=== PATIENT | female | born 1950 | race Caucasian/White ===

== ENCOUNTER 2018-10-22 08:17 | Day surgery (SDC) | payer MEDICARE ==
[~2018-10-22] VITALS: Ht 167.6 cm; Wt 65.9 kg
[2018-10-22 08:42] LABS: HEMATOCRIT 42.1 % (36.0-48.0); HEMOGLOBIN 14.8 g/dL (12-16); MCH 33.9 pg (26.0-34.0); MCHC 35.2 g/dL (31.0-37.0); MCV 96.6 fL (80.0-100.0); MEAN PLATELET VOLUME 8.7 fL (7.4-10.4); RBC 4.36 10x6/uL (4.00-5.40); RDW 13.9 % (11.5-14.5); WBC 9.6 10x3/uL (4.8-10.8)
[2018-10-22] MEDS ORDERED: ALBUTEROL SULF8.5 GM INH (09:08)
[2018-10-22] MEDS ORDERED: DILT PO (09:09)
[2018-10-22] MEDS ORDERED: CELEXA40 MG PO (09:10)
[2018-10-22] MEDS ORDERED: ATIVAN1 MG PO (09:10)
[2018-10-22] MEDS ORDERED: ULTRAM50 MG PO (09:11)
[2018-10-22] MEDS ORDERED: ANORO ELLIPTA1 EACH INH (09:11)
[2018-10-22] MEDS ORDERED: KLONOPIN1 MG PO (09:11)
[2018-10-22] MEDS ORDERED: BENTYL 20 MG TA20 MG PO (09:12)
[2018-10-22] MEDS ORDERED: OMEPRAZOLE DR 20 MG PO (09:13)
[2018-10-22] MEDS ORDERED: PEPCID AC20 MG PO (09:14)
[2018-10-22 09:23] VITALS: BP 142/80; Ht 167.6 cm; Wt 65.9 kg
--- NOTE | 2018-10-22 15:38 | NUR ---
1525 DR. BOB FISHER
--- NOTE | 2018-10-22 16:02 | NUR ---
1600 IV DC'D WITH CATH INTACT STATES READY TO GO HOME DC INSTS GIVEN VOICED UNDERSTANDING GETTING DRESSED
--- NOTE | 2018-10-22 16:18 | NUR ---
1610 DC INSTS GIVEN VOICED UNDERSTANDING RELEASED IN WC WITH ESCORT.
--- NOTE | 2018-10-27 14:09 | OP ---
PATIENT NAME: PO WARD MEDICAL RECORD: [id number] :54 LOCATION:D.OPS ADMISSION DATE: SURGEON: PATRICIA ROJAS MD DATE OF OPERATION: 10/22/2018 PREOPERATIVE DIAGNOSIS: Sigmoid colon polyp, large. POSTOPERATIVE DIAGNOSES: Sigmoid colon polyp, large with cecal scar as well as 2 other sessile polyps that ranged in size from 1.0 cm in greatest dimension to 1.3 cm. PROCEDURES: 1. Total colonoscopy to the cecum. 2. Hot biopsy forceps polypectomies times 3. 3. Biopsy of the cecal scar. 4. Snare polypectomy of the sigmoid polyp and then treatment with the argon plasma instrument technician helper and placement of one endoscopic clip for hemostasis. SURGEON: Patricia Rojas MD ASSOCIATE CREATIVE DIRECTOR: None. BLOOD LOSS: Minimal. ANESTHESIA: IV sedation. COMPLICATIONS: None. The risks, possible complications and alternatives to the procedure were explained to the patient. She elects to proceed. ENDOSCOPIC COURSE: The patient was conveyed to the endoscopy suite electively on 10/22/2018. The patient was placed in the Valenzuela position. A digital rectal examination was performed. A colonoscope was inserted through the anus. It was easily advanced to the cecum. The prep was fair. I slowly withdrew the endoscope. I irrigated and aspirated extensively. I dragged the folds. The pullback was greater than 25-minute pullback. There was a scar within the cecum and I performed a biopsy of this, which was a hot biopsy at the center of the scar. I slowly withdrew the endoscope. Two more sessile polyps were noted and these were removed utilizing the hot biopsy forceps polypectomy technique. I then withdrew into the sigmoid colon. There was a semi-pedunculated sigmoid colon polyp. I was able to get a snare around the base of the polyp and perform a snare polypectomy utilizing the coagulation setting and then the cut setting. I used suction on the device to pull the entire polyp out through the anus. I then readvanced my colonoscope to the polypectomy site. Any surrounding glandular appearing tissue was ablated with the argon plasma instrument technician helper and then 1 endoscopic clip was placed at the polypectomy site to prevent postoperative hemorrhage. I withdrew into the rectum. A retroflexed view was obtained in the rectum. I then unretroflexed the scope and removed it under direct vision. OPERATIVE REPORT [id number] PO WARD I plan to see this patient in my office in 2-3 weeks. I will plan for her next colonoscopy to take place in 1 year. TRANSINT:[id number] Voice Confirmation ID: [id number] DOCUMENT ID: [id number] PATRICIA ROJAS MD at 1409 CC: GUERRERO MYERS MD and ISABELLA MUNOZ [id number] DICTATION DATE: 10/22/18 1516 [employer] MECHANIC: 10/22/18 1610 [facility] 10/22/18 [id number] [place] [address]
== END 2018-10-22 16:10 | disposition home or self-care (01) ==
LOC: D.OPS 08:17
PROVIDERS: Anesthesiology; ATTEND Surgery
DX: D12.2 Benign neoplasm of ascending colon (principal); D12.5 Benign neoplasm of sigmoid colon; K63.5 Polyp of colon; Z01.812 Encounter for preprocedural laboratory examination

== ENCOUNTER 2020-03-02 06:35 | Day surgery (SDC) | payer MEDICARE ==
[~2020-03-02] VITALS: Ht 167.6 cm; Wt 60.5 kg
[~2020-03-02 06:35] MED LIST: ALBUTEROL SULF8.5 GM INH; ANORO ELLIPTA1 EACH INH; ATIVAN1 MG PO; BENTYL 20 MG TA20 MG PO; CELEXA40 MG PO; DILT PO; KLONOPIN1 MG PO; OMEPRAZOLE DR 20 MG PO; PEPCID AC20 MG PO; ULTRAM50 MG PO
[2020-03-02 07:03] LABS: BASOPHILS 0.8 % (0-2); EOSINOPHILS 2.1 % (0-7); HEMATOCRIT 44.4 % (36.0-48.0); HEMOGLOBIN 14.7 g/dL (12-16); IMMATURE GRANULOCYTES 0.3 % (0-5); LYMPHOCYTES 15.9 % (15-50); MCH 32.7 pg (26.0-34.0); MCHC 33.1 g/dL (31.0-37.0); MCV 98.9 fL (80.0-100.0); MEAN PLATELET VOLUME 9.2 fL (7.4-10.4); MONOCYTES 7.7 % (2-11); NEUTROPHILS 73.2 % (40-80); PLATELET COUNT 358 10x3/uL (130-400); RBC 4.49 10x6/uL (4.00-5.40); RDW 13.6 % (11.5-14.5)
[2020-03-02 07:26] LABS: ANION GAP 11.7 mmol/L (8-16); CALCIUM 9.2 mg/dL (8.5-10.1); CARBON DIOXIDE 27.1 mmol/L (21.0-32.0); POTASSIUM - SERUM 3.8 mmol/L (3.5-5.1)
[2020-03-02 07:47] VITALS: BP 148/82; Ht 167.6 cm; Wt 60.5 kg
[2020-03-02] MEDS ORDERED: RITUXAN (07:57)
--- NOTE | 2020-03-02 12:05 | NUR ---
1155 UP TO BR VOIDS AND PASSES FLATUS.
--- NOTE | 2020-03-02 12:05 | NUR ---
1150 DR. BOB FISHER.
--- NOTE | 2020-03-03 17:53 | OP ---
PATIENT NAME: PO WARD MEDICAL RECORD: [id number] :52 LOCATION:D.OPS ADMISSION DATE: SURGEON: PATRICIA ROJAS MD DATE OF OPERATION: 03/02/2020 PREOPERATIVE DIAGNOSIS: History of complex colon polyps. POSTOPERATIVE DIAGNOSES: History of complex colon polyps with no persistence or regrowth of those polyps; however, there was a 5-mm polyp within the cecum, which appeared adenomatous. Also, another polyp, which was around 40 cm and it was on a fold and it was 1.8 cm. SURGEON: Patricia Rojas MD COSTING ANALYST: None. BLOOD LOSS: Minimal. ANESTHESIA: IV sedation. COMPLICATIONS: None. The risks, possible complications and alternatives to the procedure were explained to the patient. She elects to proceed. ENDOSCOPIC COURSE: The patient was conveyed to endoscopy suite electively on 03/02/2020. IV sedation was induced by anesthesia staff. The patient was placed in the Valenzuela position. A digital rectal examination was performed. A colonoscope was inserted through the anus. It was easily advanced to the cecum. I performed one hot biopsy forceps polypectomy technique in the cecum. This polyp was sessile. I slowly withdrew the endoscope. The prep was adequate. I dragged the folds. Normal imaging as well as narrow band imaging were utilized. Another polyp was noted and this was removed in its entirety utilizing the hot biopsy forceps polypectomy technique. The pullback was greater than 15-minute pullback. A retroflexed view was obtained in the rectum. I then unretroflexed the scope and removed it under direct vision. I will plan to see the patient in my office in 2-3 weeks. I will plan for her next colonoscopy to take place in 3 years. TRANSINT:[id number] Voice Confirmation ID: [id number] DOCUMENT ID: [id number] PATRICIA ROJAS MD at 1753 CC: GUERRERO MYERS MD, ISABELLA MUNOZ and ARNOLD MATIAS [id number] DICTATION DATE: 03/02/20 1138 BIOMEDICAL ENGINEER: 03/02/20 1520 [facility] 03/02/20 [facility] [address] [place] [address]
== END 2020-03-02 12:25 | disposition home or self-care (01) ==
LOC: D.OPS 06:35
PROVIDERS: Anesthesiology; ATTEND Surgery
DX: Z86.010 Personal history of colon polyps (principal); D12.5 Benign neoplasm of sigmoid colon; I10 Essential (primary) hypertension; Z72.0 Tobacco use; F41.9 Anxiety disorder, unspecified